=== PATIENT | female | born 1945 | race Caucasian/White ===

== ENCOUNTER 2018-03-16 07:01 | Inpatient (IN) | payer MEDICARE, MEDICAID ==
[~2018-03-16] VITALS: Ht 157.5 cm; Wt 66.2 kg
[2018-03-16] VITALS (7 sets, daily range): BP systolic 140–146; BP diastolic 59–77
[2018-03-16] MEDS ORDERED: CILO100T MT (08:18)
[2018-03-16] MEDS ORDERED: LOSA25TA12 MT (08:18)
[2018-03-16] MEDS ORDERED: EMPA10TA MT (08:18)
[2018-03-16] MEDS ORDERED: AMLO5TAB88 MT (08:18)
[2018-03-16] MEDS ORDERED: METF-816 MT (08:18)
[2018-03-16] MEDS ORDERED: ASPI-1159 MT (08:18)
[2018-03-16] MEDS ORDERED: ATOR20TA65 MT (08:18)
[2018-03-16] MEDS ORDERED: SITA100T11 MT (08:18)
[2018-03-16] MEDS ORDERED: ASPIRIN/SOD BICARB/CITRIC ACID 324MG TAB EFF ONE (08:31)
[2018-03-16] MEDS ORDERED: LIDOCAINE HCL 1% 20ML VIAL (Pyxis) INJ ONE (08:37)
[2018-03-16] MEDS ORDERED: IODIXANOL 320MG/ML 100 ML BOTTLE IV ONE (08:38)
[2018-03-16] MEDS ORDERED: MIDAZOLAM HCL 2 MG/2 ML VIAL ONE ×2 (08:42→09:03)
[2018-03-16] MEDS ORDERED: FENTANYL CITRATE/PF 50MCG/ML 2ML VIAL ONE (08:42)
[2018-03-16] MEDS ORDERED: IOHEXOL-300 100 ML BOTTLE ONE (09:11)
[2018-03-16] MEDS ORDERED: CLOPIDOGREL 75MG TABLET ONE (09:28)
[2018-03-16] MEDS ORDERED: CLOPIDOGREL 75MG TABLET PO ONE (10:00)
[2018-03-16] MEDS ORDERED: MORPHINE SULFATE 4 MG/ML CPJ (NOT FOR IM USE) IV PRN (10:00)
[2018-03-16] MEDS ORDERED: ATROPINE SULFATE 1MG/10ML SYR IV PRN (10:00)
[2018-03-16] MEDS ORDERED: DEXTROSE 50% WATER 50ML SYRINGE IV PRN (10:00)
[2018-03-16] MEDS ORDERED: ONDANSETRON HCL 4MG/2ML INJ IV PRN (10:00)
[2018-03-16] MEDS ORDERED: ACETAMINOPHEN 325MG TABLET PO PRN (10:00)
[2018-03-16] MEDS ORDERED: SODIUM CHLORIDE 0.45% 1,000 ML IV ONE (10:00)
[2018-03-16] MEDS: BLOOD SUGAR DIAGNOSTIC STRIP TEST SCH ×3 (11:17→20:57)
[2018-03-16] MEDS: INSULIN LISPRO 100 UNITS/ML SUBCUT SCH ×3 (12:21→21:31)
[2018-03-16] MEDS ORDERED: HEPARIN SODIUM 1,000 UNIT/1ML VIAL IV ONE (13:56)
[2018-03-17] VITALS (8 sets, daily range): BP systolic 118–144; BP diastolic 62–73
[2018-03-17 06:41] LABS: BASOPHILS % 1.1 % (0.0-2.0); EOSINOPHILS % 2.5 % (0.0-5.0); HEMATOCRIT. 40.2 % (36.0-48.0); HEMOGLOBIN. 13.2 g/dL (12.0-16.0); MEAN CORPUSCULAR HEMOGLOBIN 30.1 pg (28.0-32.0); MEAN CORPUSCULAR VOLUME 91.6 fL (81.0-99.0); MEAN PLATELET VOLUME 8.9 fl (7.4-10.4); MONOCYTES % 10.1 % (2.0-8.0); NEUTROPHILS % 67.3 % (40.0-76.0); PLATELET 235 x1000/uL (130-400); RED BLOOD CELL COUNT 4.39 mill/uL (4.2-5.4); RED CELL DISTRIBUTION WIDTH 15.3 % (11.6-14.6)
[2018-03-17] MEDS: BLOOD SUGAR DIAGNOSTIC STRIP TEST SCH ×2 (06:50→12:07)
[2018-03-17 07:14] LABS: CHLORIDE 107 mEq/L (98-107)
[2018-03-17] MEDS: INSULIN LISPRO 100 UNITS/ML SUBCUT SCH ×2 (07:20→12:09)
[2018-03-17] MEDS ORDERED: LOSARTAN POTASSIUM 25 MG TABLET PO SCH (09:00)
[2018-03-17] MEDS ORDERED: ASPIRIN 81MG TABLET PO SCH (09:00)
[2018-03-17] MEDS ORDERED: CLOPIDOGREL 75MG TABLET PO SCH (09:00)
== END 2018-03-17 12:35 | disposition home or self-care (01) | DRG 254 ==
LOC: CCL 07:01 → 3WST 10:54
PROVIDERS: ADMIT Specialist; ATTEND Specialist
PROC: 047K3DZ Dilation of Right Femoral Artery with Intraluminal Device, Percutaneous Approach (ICD-10-PCS; principal; 2018-03-16)
DX: E11.51 Type 2 diabetes mellitus with diabetic peripheral angiopathy without gangrene (principal); I10 Essential (primary) hypertension; E78.5 Hyperlipidemia, unspecified
CPT/HCPCS: 36415; 37226; 75710; 80048; 82962; 85347; 93005; C1725; C1760; C1769; C1876; C1893; C1894; J1644; J1815; J2250; J3010; J3490; Q9967

== ENCOUNTER 2018-12-21 06:27 | Day surgery (SDC) | payer MEDICARE, MEDICAID ==
[~2018-12-21] VITALS: Ht 157.5 cm; Wt 68.0 kg
[~2018-12-21 06:27] MED LIST: AMLO5TAB88 MT; ASPI-1393 MT; ATOR20TA65 MT; CILO100T MT; EMPA10TA MT; LOSA25TA26 MT; METF-816 MT; SITA100T11 MT
[2018-12-21] MEDS ORDERED: CALC-25 MT (07:42)
[2018-12-21] MEDS ORDERED: IODIXANOL 320MG/ML 100 ML BOTTLE IV ONE (07:49)
[2018-12-21] MEDS ORDERED: ASPIRIN/SOD BICARB/CITRIC ACID 324MG TAB EFF ONE (07:49)
[2018-12-21] MEDS ORDERED: LIDOCAINE HCL 1% 20ML VIAL (Pyxis) INJ ONE (07:49)
[2018-12-21] MEDS ORDERED: FENTANYL CITRATE/PF 50MCG/ML 2ML VIAL ONE (08:22)
[2018-12-21] MEDS ORDERED: MIDAZOLAM HCL 2 MG/2 ML VIAL ONE (08:22)
[2018-12-21] MEDS ORDERED: HYDRALAZINE 20MG/ML VIAL ONE (09:05)
[2018-12-21] MEDS ORDERED: ATROPINE SULFATE 1MG/10ML SYR IV PRN (09:15)
[2018-12-21] MEDS ORDERED: AMLODIPINE 5MG TABLET PO ONE (09:15)
[2018-12-21] MEDS ORDERED: ONDANSETRON HCL 4MG/2ML INJ IV PRN (09:15)
[2018-12-21] MEDS ORDERED: MORPHINE SULFATE 2 MG/ML CPJ (NOT FOR IM USE) IV PRN (09:15)
[2018-12-21] MEDS ORDERED: ACETAMINOPHEN 325MG TABLET PO PRN (09:15)
[2018-12-21] MEDS ORDERED: PROTAMINE SULFATE 10MG/ML VIAL 5ML IV ONE (09:32)
[2018-12-21] MEDS ORDERED: HEPARIN SODIUM 1,000 UNIT/1ML VIAL IV ONE (13:41)
[2018-12-21] MEDS ORDERED: NITROGLYCERIN 50MCG/ML 10ML VIAL (CATH LAB) IV ONE (13:41)
[2018-12-21] MEDS ORDERED: NICARDIPINE 100MCG/ML 10ML VIAL (CATH LAB) IV ONE (13:41)
== END 2018-12-21 16:45 | disposition home or self-care (01) ==
LOC: CCL 06:27
PROVIDERS: ATTEND Specialist
DX: I73.9 Peripheral vascular disease, unspecified (principal); Z79.899 Other long term (current) drug therapy; Z79.82 Long term (current) use of aspirin; Z79.84 Long term (current) use of oral hypoglycemic drugs; Z87.891 Personal history of nicotine dependence
CPT/HCPCS: 36247; 75710; 82962; 85347; 99152; 99153; C1725; C1760; C1769; C1893; J0360; J1644; J2250; J2720; J3010; J3490; Q9967; 36246; G0500

== ENCOUNTER 2019-04-19 06:47 | Day surgery (SDC) | payer MEDICARE, MEDICAID ==
[~2019-04-19] VITALS: Ht 157.5 cm; Wt 56.7 kg
[~2019-04-19 06:47] MED LIST changes: -ASPI-1393 MT; +ASPI-1497 MT; +CALC-25 MT
[2019-04-19] MEDS ORDERED: IODIXANOL 320MG/ML 100 ML BOTTLE IV ONE (07:34)
[2019-04-19] MEDS ORDERED: LIDOCAINE HCL 1% 20ML VIAL (Pyxis) INJ ONE (07:34)
[2019-04-19] MEDS ORDERED: ASPIRIN/SOD BICARB/CITRIC ACID 324MG TAB EFF ONE (07:34)
[2019-04-19 07:41] LABS: CHLORIDE 108 mEq/L (98-107)
[2019-04-19] MEDS ORDERED: FENTANYL CITRATE/PF 50MCG/ML 2ML VIAL ONE (07:57)
[2019-04-19] MEDS ORDERED: MIDAZOLAM HCL 2 MG/2 ML VIAL ONE (07:57)
[2019-04-19] MEDS ORDERED: HYDRALAZINE 20MG/ML VIAL ONE (08:37)
[2019-04-19] MEDS ORDERED: ATROPINE SULFATE 1MG/10ML SYR IV PRN (08:45)
[2019-04-19] MEDS ORDERED: MORPHINE SULFATE 2 MG/ML CPJ (NOT FOR IM USE) IV PRN (08:45)
[2019-04-19] MEDS ORDERED: ACETAMINOPHEN 325MG TABLET PO PRN (08:45)
[2019-04-19] MEDS ORDERED: ONDANSETRON HCL 4MG/2ML INJ IV PRN (08:45)
[2019-04-19] MEDS ORDERED: HEPARIN SODIUM 1,000 UNIT/1ML VIAL IV ONE (15:59)
[2019-04-19] MEDS ORDERED: NITROGLYCERIN 50MCG/ML 10ML VIAL (CATH LAB) IV ONE (15:59)
[2019-04-19] MEDS ORDERED: NICARDIPINE 100MCG/ML 10ML VIAL (CATH LAB) IV ONE (15:59)
== END 2019-04-19 14:15 | disposition home or self-care (01) ==
LOC: CCL 06:47
PROVIDERS: ATTEND Specialist
DX: I25.10 Atherosclerotic heart disease of native coronary artery without angina pectoris (principal); R94.39 Abnormal result of other cardiovascular function study; E78.5 Hyperlipidemia, unspecified; E11.9 Type 2 diabetes mellitus without complications; Z79.82 Long term (current) use of aspirin; Z79.84 Long term (current) use of oral hypoglycemic drugs; Z79.899 Other long term (current) drug therapy; Z87.891 Personal history of nicotine dependence
CPT/HCPCS: 36415; 80048; 93458; 99152; 99153; C1769; C1887; C1893; J0360; J1644; J2250; J3010; J3490; Q9967

== ENCOUNTER 2019-04-26 06:43 | Inpatient (IN) | payer MEDICARE, MEDICAID ==
[~2019-04-26] VITALS: Ht 157.5 cm; Wt 57.2 kg
[2019-04-26] VITALS (8 sets, daily range): BP systolic 134–154; BP diastolic 55–75
[~2019-04-26 06:43] MED LIST changes: -ASPI-1497 MT; +ASPI-1497 PO
[2019-04-26] MEDS ORDERED: IODIXANOL 320MG/ML 100 ML BOTTLE IV ONE ×2 (07:43→09:27)
[2019-04-26] MEDS ORDERED: LIDOCAINE HCL 1% 20ML VIAL (Pyxis) INJ ONE (07:46)
[2019-04-26] MEDS ORDERED: EMPA25TA PO (08:09)
[2019-04-26] MEDS ORDERED: CLAR10 PO (08:09)
[2019-04-26] MEDS ORDERED: SITA1TBM4 PO (08:09)
[2019-04-26] MEDS ORDERED: AMA2 PO (08:09)
[2019-04-26] MEDS ORDERED: ASPIRIN/SOD BICARB/CITRIC ACID 324MG TAB EFF ONE (08:12)
[2019-04-26] MEDS ORDERED: MIDAZOLAM HCL 2 MG/2 ML VIAL ONE (08:14)
[2019-04-26] MEDS ORDERED: FENTANYL CITRATE/PF 50MCG/ML 2ML VIAL ONE (08:14)
[2019-04-26] MEDS ORDERED: IOHEXOL-300 100 ML BOTTLE ONE (08:39)
[2019-04-26] MEDS ORDERED: CLOPIDOGREL 75MG TABLET ONE (09:41)
[2019-04-26] MEDS ORDERED: CLOPIDOGREL 75MG TABLET PO ONE (10:00)
[2019-04-26] MEDS ORDERED: DEXTROSE 50% WATER 50ML SYRINGE IV PRN (10:00)
[2019-04-26] MEDS ORDERED: MORPHINE SULFATE 2 MG/ML CPJ (NOT FOR IM USE) IV PRN (10:00)
[2019-04-26] MEDS ORDERED: ACETAMINOPHEN 325MG TABLET PO PRN (10:00)
[2019-04-26] MEDS ORDERED: ATROPINE SULFATE 1MG/10ML SYR IV PRN (10:00)
[2019-04-26] MEDS ORDERED: ONDANSETRON HCL 4MG/2ML INJ IV PRN (10:00)
[2019-04-26] MEDS ORDERED: NICARDIPINE 100MCG/ML 10ML VIAL (CATH LAB) IV ONE (13:42)
[2019-04-26] MEDS ORDERED: NITROGLYCERIN 50MCG/ML 10ML VIAL (CATH LAB) IV ONE (13:42)
[2019-04-26] MEDS ORDERED: HEPARIN SODIUM 1,000 UNIT/1ML VIAL IV ONE (13:42)
[2019-04-26] MEDS ORDERED: SODIUM CHLORIDE 0.45% 1,000 ML IV ONE (16:30)
[2019-04-26] MEDS: BLOOD SUGAR DIAGNOSTIC STRIP TEST SCH ×2 (17:27→21:00)
[2019-04-26] MEDS: INSULIN LISPRO 100 UNITS/ML SUBCUT SCH ×2 (17:32→21:08)
[2019-04-26] MEDS ORDERED: ATORVASTATIN CALCIUM 20MG TABLET PO SCH (21:00)
[2019-04-26] MEDS: LOSARTAN POTASSIUM 25 MG TABLET PO SCH (21:08)
[2019-04-27] VITALS (7 sets, daily range): BP systolic 134–154; BP diastolic 56–73
[2019-04-27] MEDS: BLOOD SUGAR DIAGNOSTIC STRIP TEST SCH (06:22)
[2019-04-27 07:39] LABS: BASOPHILS % 0.5 % (0.0-2.0); EOSINOPHILS % 4.5 % (0.0-5.0); HEMATOCRIT. 39.4 % (36.0-48.0); HEMOGLOBIN. 13.6 g/dL (12.0-16.0); LYMPHOCYTES % 14.7 % (20.0-50.0); MEAN CORPUSCULAR HEMOGLOBIN 31.3 pg (28.0-32.0); MEAN CORPUSCULAR VOLUME 91.1 fL (81.0-99.0); MEAN PLATELET VOLUME 8.5 fl (7.4-10.4); MONOCYTES % 10.7 % (2.0-8.0); NEUTROPHILS % 69.6 % (40.0-76.0); PLATELET 202 x1000/uL (130-400); RED BLOOD CELL COUNT 4.33 mill/uL (4.2-5.4); RED CELL DISTRIBUTION WIDTH 14.6 % (11.6-14.6)
[2019-04-27 07:48] LABS: CHLORIDE 108 mEq/L (98-107)
[2019-04-27] MEDS: LOSARTAN POTASSIUM 25 MG TABLET PO SCH (08:49)
[2019-04-27] MEDS: INSULIN LISPRO 100 UNITS/ML SUBCUT SCH (08:52)
[2019-04-27] MEDS ORDERED: ASPIRIN 325MG TABLET PO SCH (09:00)
[2019-04-27] MEDS ORDERED: CLOPIDOGREL 75MG TABLET PO SCH (09:00)
== END 2019-04-27 12:25 | disposition home or self-care (01) | DRG 246 ==
LOC: CCL 06:43 → 3WST 06:44
PROVIDERS: ADMIT Specialist; ATTEND Specialist
PROC: 027037Z Dilation of Coronary Artery, One Artery with Four or More Drug-eluting Intraluminal Devices, Percutaneous Approach (ICD-10-PCS; principal; 2019-04-26)
PROC: B2101ZZ Fluoroscopy of Single Coronary Artery using Low Osmolar Contrast (ICD-10-PCS; 2019-04-26)
DX: I25.10 Atherosclerotic heart disease of native coronary artery without angina pectoris (principal); I73.9 Peripheral vascular disease, unspecified; I10 Essential (primary) hypertension; E78.5 Hyperlipidemia, unspecified; K21.9 Gastro-esophageal reflux disease without esophagitis; I95.9 Hypotension, unspecified; E11.51 Type 2 diabetes mellitus with diabetic peripheral angiopathy without gangrene; Z95.820 Peripheral vascular angioplasty status with implants and grafts; Z79.899 Other long term (current) drug therapy; Z79.82 Long term (current) use of aspirin; Z79.84 Long term (current) use of oral hypoglycemic drugs; Z79.02 Long term (current) use of antithrombotics/antiplatelets
CPT/HCPCS: 36415; 80048; 82962; 83036; 85025; 85347; 92933; 93005; 93454; C1725; C1726; C1760; C1769; C1874; C1887; C1893; J1644; J1815; J2250; J3010; J3490; Q9967

== ENCOUNTER 2019-05-10 06:44 | Inpatient (IN) | payer MEDICARE, MEDICAID ==
[2019-05-10] VITALS (25 sets, daily range): BP systolic 113–175; BP diastolic 45–161
[~2019-05-10] VITALS: Ht 157.5 cm; Wt 62.6 kg
[~2019-05-10 06:44] MED LIST changes: +AMA2 PO; +CLAR10 PO; +SITA1TBM4 PO
[2019-05-10] MEDS ORDERED: ASPIRIN/SOD BICARB/CITRIC ACID 324MG TAB EFF ONE (07:34)
[2019-05-10] MEDS ORDERED: LIDOCAINE HCL 1% 20ML VIAL (Pyxis) INJ ONE ×3 (07:43→11:04)
[2019-05-10] MEDS ORDERED: IODIXANOL 320MG/ML 100 ML BOTTLE IV ONE (07:43)
[2019-05-10 07:55] LABS: CHLORIDE 107 mEq/L (98-107)
[2019-05-10] MEDS ORDERED: CLOP75TA4 PO (08:13)
[2019-05-10] MEDS ORDERED: MIDAZOLAM HCL 2 MG/2 ML VIAL ONE (10:07)
[2019-05-10] MEDS ORDERED: FENTANYL CITRATE/PF 50MCG/ML 2ML VIAL ONE (10:08)
[2019-05-10] MEDS ORDERED: IOHEXOL-300 100 ML BOTTLE ONE (10:22)
[2019-05-10] MEDS ORDERED: HYDRALAZINE 20MG/ML VIAL ONE (11:00)
[2019-05-10] MEDS ORDERED: DEXTROSE 50% WATER 50ML SYRINGE IV PRN (12:00)
[2019-05-10] MEDS ORDERED: SODIUM CHLORIDE 0.45% 1,000 ML IV ONE (12:00)
[2019-05-10] MEDS ORDERED: MORPHINE SULFATE 2 MG/ML CPJ (NOT FOR IM USE) IV PRN ×2 (12:00)
[2019-05-10] MEDS ORDERED: ATROPINE SULFATE 1MG/10ML SYR IV PRN (12:00)
[2019-05-10] MEDS ORDERED: ONDANSETRON HCL 4MG/2ML INJ IV PRN (12:00)
[2019-05-10] MEDS: BLOOD SUGAR DIAGNOSTIC STRIP TEST SCH ×3 (13:00→21:00)
[2019-05-10] MEDS ORDERED: NICARDIPINE 100MCG/ML 10ML VIAL (CATH LAB) IV ONE (13:09)
[2019-05-10] MEDS ORDERED: NITROGLYCERIN 50MCG/ML 10ML VIAL (CATH LAB) IV ONE (13:09)
[2019-05-10] MEDS: INSULIN LISPRO 100 UNITS/ML SUBCUT SCH ×3 (15:35→20:42)
[2019-05-10 15:38] LABS: HEMATOCRIT. 36.6 % (36.0-48.0); HEMOGLOBIN. 12.6 g/dL (12.0-16.0); MEAN CORPUSCULAR HEMOGLOBIN 31.4 pg (28.0-32.0); MEAN CORPUSCULAR VOLUME 91.4 fL (81.0-99.0); MEAN PLATELET VOLUME 8.3 fl (7.4-10.4); PLATELET 224 x1000/uL (130-400); RED CELL DISTRIBUTION WIDTH 14.3 % (11.6-14.6)
[2019-05-10 15:44] LABS: CHLORIDE 104 mEq/L (98-107)
[2019-05-10 17:23] LABS: PLATELET ESTIMATE NORMAL
[2019-05-10] MEDS: AMLODIPINE 5MG TABLET PO SCH (20:38)
[2019-05-10] MEDS ORDERED: AMLODIPINE 2.5MG TABLET PO SCH (21:00)
[2019-05-11] VITALS (58 sets, daily range): BP systolic 113–178; BP diastolic 28–94
[2019-05-11] MEDS: HYDRALAZINE 20MG/ML VIAL IV PRN ×2 (04:35→18:12)
[2019-05-11 06:12] LABS: BASOPHILS % 0.7 % (0.0-2.0); EOSINOPHILS % 1.8 % (0.0-5.0); HEMATOCRIT. 36.4 % (36.0-48.0); HEMOGLOBIN. 12.4 g/dL (12.0-16.0); LYMPHOCYTES % 19.7 % (20.0-50.0); MEAN CORPUSCULAR HEMOGLOBIN 31.1 pg (28.0-32.0); MEAN CORPUSCULAR VOLUME 91.1 fL (81.0-99.0); MEAN PLATELET VOLUME 8.5 fl (7.4-10.4); NEUTROPHILS % 68.8 % (40.0-76.0); PLATELET 233 x1000/uL (130-400); RED CELL DISTRIBUTION WIDTH 14.6 % (11.6-14.6)
[2019-05-11 06:31] LABS: CHLORIDE 107 mEq/L (98-107)
[2019-05-11] MEDS: INSULIN LISPRO 100 UNITS/ML SUBCUT SCH ×4 (08:20→22:01)
[2019-05-11] MEDS: BLOOD SUGAR DIAGNOSTIC STRIP TEST SCH ×4 (08:47→21:55)
[2019-05-11] MEDS: AMLODIPINE 5MG TABLET PO SCH ×2 (08:48→21:00)
[2019-05-11] MEDS ORDERED: NICARDIPINE 100MCG/ML 10ML VIAL (CATH LAB) IV ONE (11:16)
[2019-05-11] MEDS ORDERED: HEPARIN SODIUM 1,000 UNIT/1ML VIAL IV ONE (11:16)
[2019-05-11] MEDS ORDERED: NITROGLYCERIN 50MCG/ML 10ML VIAL (CATH LAB) IV ONE (11:16)
[2019-05-11] MEDS ORDERED: LIDOCAINE HCL 1% 20ML VIAL (Pyxis) INJ ONE (12:26)
[2019-05-11] MEDS ORDERED: IODIXANOL 320MG/ML 100 ML BOTTLE IV ONE ×2 (12:27→14:17)
[2019-05-11] MEDS ORDERED: IOHEXOL-300 100 ML BOTTLE ONE (12:27)
[2019-05-11] MEDS ORDERED: ASPIRIN/SOD BICARB/CITRIC ACID 324MG TAB EFF ONE (13:00)
[2019-05-11] MEDS ORDERED: MIDAZOLAM HCL 2 MG/2 ML VIAL ONE (13:13)
[2019-05-11] MEDS ORDERED: FENTANYL CITRATE/PF 50MCG/ML 2ML VIAL ONE (13:13)
[2019-05-11] MEDS ORDERED: CLOPIDOGREL 75MG TABLET ONE (14:27)
[2019-05-11] MEDS ORDERED: MORPHINE SULFATE 2 MG/ML CPJ (NOT FOR IM USE) IV PRN ×2 (14:45)
[2019-05-11] MEDS ORDERED: SODIUM CHLORIDE 0.45% 1,000 ML IV ONE (14:45)
[2019-05-11] MEDS ORDERED: CLOPIDOGREL 75MG TABLET PO ONE (14:45)
[2019-05-11] MEDS ORDERED: ONDANSETRON HCL 4MG/2ML INJ IV PRN (14:45)
[2019-05-11] MEDS ORDERED: ACETAMINOPHEN 325MG TABLET PO PRN (14:45)
[2019-05-11] MEDS ORDERED: ATROPINE SULFATE 1MG/10ML SYR IV PRN (14:45)
[2019-05-12] VITALS (7 sets, daily range): BP systolic 106–139; BP diastolic 38–98
[2019-05-12] MEDS: ACETAMINOPHEN 325MG TABLET PO PRN ×2 (01:23→07:57)
[2019-05-12 05:44] LABS: CHLORIDE 108 mEq/L (98-107)
[2019-05-12 05:49] LABS: BASOPHILS % 0.5 % (0.0-2.0); EOSINOPHILS % 0.7 % (0.0-5.0); HEMOGLOBIN. 11.7 g/dL (12.0-16.0); LYMPHOCYTES % 9.6 % (20.0-50.0); MEAN CORPUSCULAR HEMOGLOBIN 30.9 pg (28.0-32.0); MEAN CORPUSCULAR VOLUME 89.8 fL (81.0-99.0); MEAN PLATELET VOLUME 7.9 fl (7.4-10.4); MONOCYTES % 8.5 % (2.0-8.0); NEUTROPHILS % 80.7 % (40.0-76.0); PLATELET 208 x1000/uL (130-400); RED BLOOD CELL COUNT 3.79 mill/uL (4.2-5.4); RED CELL DISTRIBUTION WIDTH 14.5 % (11.6-14.6)
[2019-05-12] MEDS: BLOOD SUGAR DIAGNOSTIC STRIP TEST SCH (06:22)
[2019-05-12] MEDS: INSULIN LISPRO 100 UNITS/ML SUBCUT SCH (07:20)
[2019-05-12] MEDS: AMLODIPINE 5MG TABLET PO SCH (07:58)
[2019-05-12] MEDS ORDERED: CLOPIDOGREL 75MG TABLET PO SCH (09:00)
== END 2019-05-12 12:00 | disposition home or self-care (01) | DRG 247 ==
LOC: CCL 06:44 → CVICU 06:45 → 3WST 05-11 15:00
PROVIDERS: ADMIT Specialist; ATTEND Specialist
PROC: 4A023N7 Measurement of Cardiac Sampling and Pressure, Left Heart, Percutaneous Approach (ICD-10-PCS; principal; 2019-05-10)
PROC: B41G1ZZ Fluoroscopy of Left Lower Extremity Arteries using Low Osmolar Contrast (ICD-10-PCS; 2019-05-10)
PROC: B41F1ZZ Fluoroscopy of Right Lower Extremity Arteries using Low Osmolar Contrast (ICD-10-PCS; 2019-05-10)
PROC: 02C03ZZ Extirpation of Matter from Coronary Artery, One Artery, Percutaneous Approach (ICD-10-PCS; 2019-05-11)
PROC: 027035Z Dilation of Coronary Artery, One Artery with Two Drug-eluting Intraluminal Devices, Percutaneous Approach (ICD-10-PCS; 2019-05-11)
PROC: B2111ZZ Fluoroscopy of Multiple Coronary Arteries using Low Osmolar Contrast (ICD-10-PCS; 2019-05-11)
PROC: 4A023N7 Measurement of Cardiac Sampling and Pressure, Left Heart, Percutaneous Approach (ICD-10-PCS; 2019-05-11)
DX: I25.10 Atherosclerotic heart disease of native coronary artery without angina pectoris (principal); E11.51 Type 2 diabetes mellitus with diabetic peripheral angiopathy without gangrene; I10 Essential (primary) hypertension; E78.5 Hyperlipidemia, unspecified; K21.9 Gastro-esophageal reflux disease without esophagitis; I65.29 Occlusion and stenosis of unspecified carotid artery; Z79.82 Long term (current) use of aspirin; Z79.84 Long term (current) use of oral hypoglycemic drugs; Z79.899 Other long term (current) drug therapy
CPT/HCPCS: 36415; 75710; 80048; 82962; 83036; 85025; 85347; 92933; 93005; 93458; C1760; C1769; C1874; C1887; C1893; C1894; J0360; J0461; J1644; J1815; J2250; J2270; J3010; J3490; Q9967